=== PATIENT | male | born 1975 | race Caucasian/White ===

== ENCOUNTER → 2017-06-21 | Outpatient (CLI) | payer BC ==
--- NOTE | 2017-06-21 13:10 | PCVCIMAG ---
APPROVED REPORT Exam: Stress Echocardiogram Indication: Hypertension, Hyperlipidemia, Chest pain Patient Location: Echo lab Stress Nurse: Zainab Buckley RN Status: routine Ht: 6 ft 2 in HR: 83 bpm BP: 128/70 mmHg Rhythm: NSR Procedure The patient underwent an Exercise Stress Test using the Humberto Protocol. Blood pressure, heart rate, and EKG were monitored. An Echocardiogram was performed by electronic service technician in four stages in quad fashion. At peak stress, four selected images were obtained and placed side by side with resting images for comparison. Stress Test Details Stress Test: Exercise stress testing was performed using a Humberto protocol. HR Resting HR: 83 bpmMax Heart Rate (APMHR): 177 bpm Max HR Achieved: 164 bpmTarget HR (85% APMHR): 150 bpm % of APMHR: 92 Recovery HR: 108 bpm HR response to stress: Normal HR response to stress BP Resting BP: 128/70 mmHg Max BP: 176/84 mmHg Recovery BP: 148/70 mmHg ECG Resting ECG: Sinus Rhythm Recovery ECG: Sinus Rhythm Clinical Reason for Termination: Maximal effort Exercise duration: 13 min 30 sec Highest Stage Achieved: Stage 5: 5.0 mph at 18% grade. Exercise capacity: 17.50 METs Overall Exercise Capacity for Age: Good Pre-Stress Echo The resting Echocardiogram showed normal left ventricular contractility with an estimated Ejection Fraction of about >55%. Normal wall motion in all segments on baseline images. Post-Stress Echo The stress Echocardiogram showed normal left ventricular contractility with an estimated Ejection Fraction of about 65-70%. Normal augmentation of wall motion in all segments on post stress images. Clinical No clinical or ECG evidence for ischemia. Conclusion Clinical Response: Non-ischemic Exercise Capacity: Superior Stress ECG Response: Non-ischemic Stress Echo Images: Ischemic The left ventricle is normal in size and wall thickness in both the rest and stress images. Other Information Study Quality: Adequate <Conclusion> The left ventricle is normal in size and wall thickness in both the rest and stress images.
== END | disposition home or self-care (01) ==
LOC: PCVCIMAG 10:58
PROVIDERS: ATTEND Internal Medicine Cardiovascular Disease
DX: I10 Essential (primary) hypertension (principal); R07.9 Chest pain, unspecified; E78.5 Hyperlipidemia, unspecified
CPT/HCPCS: 93325; 93351

== ENCOUNTER → 2019-07-07 | Outpatient (CLI) | payer BC ==
--- NOTE | 2019-07-11 16:38 | PCVCIMAG ---
APPROVED REPORT Study performed: 07/07/2019 10:23:52 Exam: Stress Echocardiogram Indication: Dyspnea on exertion, htn, hlp, fam hx cad Patient Location: Echo lab Stress Nurse: Gloria Pena RN Status: routine Ht: 6 ft 2 in HR: 85 bpm BP: 144/84 mmHg Rhythm: NSR Procedure The patient underwent an Exercise Stress Test using the Humberto Protocol. Blood pressure, heart rate, and EKG were monitored. An Echocardiogram was performed by planning technician in four stages in quad fashion. At peak stress, four selected images were obtained and placed side by side with resting images for comparison. Stress Test Details Stress Test: Exercise stress testing was performed using a Humberto protocol. HR Resting HR: 85 bpmMax Heart Rate (APMHR): 174 bpm Max HR Achieved: 162 bpmTarget HR (85% APMHR): 147 bpm % of APMHR: 93 Recovery HR: 110 bpm HR response to stress: Normal HR response to stress BP Resting BP: 144/84 mmHg Max BP: 186/76 mmHg Recovery BP: 148/80 mmHg BP response to stress: Normal blood pressure response to stress. ECG Resting ECG: Sinus Rhythm Stress ECG: Sinus Rhythm ST Change: Normal Arrhythmia: None Recovery ECG: Sinus Rhythm Recovery ST Change: Normal Recovery Arrhythmia: None Clinical Reason for Termination: Maximal effort Stress Symptoms: Dyspnea Exercise duration: 11 min 41 sec Highest Stage Achieved: Stage 4: 4.2 mph at 16% grade. Exercise capacity: 13.7 METs Overall Exercise Capacity for Age: Good Scale: Active Angina Score: None Pre-Stress Echo The resting Echocardiogram showed normal left ventricular contractility with an estimated Ejection Fraction of about >55%. The resting echocardiogram demonstrated normal wall motion in all wall segments. Post-Stress Echo The stress Echocardiogram showed normal left ventricular contractility with an estimated Ejection Fraction of about 65%. Compared to rest, there were no stress-induced wall motion abnormalities. Clinical No clinical or ECG evidence for ischemia. Conclusion Clinical Response: Non-ischemic Exercise Capacity: Average Stress ECG Response: Non-ischemic Stress Echo Images: Non-ischemic The left ventricle is normal in size and wall thickness in both the rest and stress images. Mild mitral regurgitation and mild tricuspid regurgitation with PAP of 38 mmHg. Normal aortic and pulmonic valves without stenosis. Other Information Study Quality: Adequate <Conclusion> The left ventricle is normal in size and wall thickness in both the rest and stress images. Mild mitral regurgitation and mild tricuspid regurgitation with PAP of 38 mmHg. Normal aortic and pulmonic valves without stenosis.
== END | disposition home or self-care (01) ==
LOC: PCVCIMAG 09:44
PROVIDERS: ATTEND Internal Medicine Cardiovascular Disease
DX: I08.1 Rheumatic disorders of both mitral and tricuspid valves (principal); I10 Essential (primary) hypertension; E78.5 Hyperlipidemia, unspecified; Z82.49 Family history of ischemic heart disease and other diseases of the circulatory system
CPT/HCPCS: 93325; 93351